=== PATIENT | male | born 1955 | race Caucasian/White ===

== ENCOUNTER 2019-11-01 10:55 | Inpatient (IN) | payer OTHER ==
--- NOTE | 2019-11-01 12:03 | CT ---
CT BRAIN WITHOUT CONTRAST: HISTORY: Syncope, weakness FINDINGS: No evidence of acute infarct, hemorrhage, midline shift or abnormal extra-axial fluid collections is seen. The ventricular size is appropriate and the basilar cisterns are patent. The bony calvarium is intact. The mastoid air cells are well aerated. There is mucosal disease in the paranasal sinuses. IMPRESSION: No CT evidence of acute intracranial process.
[2019-11-01 12:05] LABS: Hemoglobin 8.3 g/dL (14.0-18.0); Mean Corpuscular Hemoglobin 25.9 pg (27.0-31.0); Mean Corpuscular Volume 83.4 fL (78.0-98.0); RBC Distribution Width 19.5 % (11.5-14.5); Red Blood Cell (RBC) Count 3.21 mill/uL (4.70-6.10); White Blood Cell (WBC) Count 3.6 thou/uL (4.8-10.8)
[2019-11-01 12:24] LABS: ALT (SGPT) 16 U/L (8-55); AST (SGOT) 56 U/L (5-34); Albumin 2.1 g/dL (3.4-4.8); Alkaline Phosphatase 90 U/L (40-110); Anion Gap 11 mmol/L (10-20); BUN (Urea Nitrogen) 11 mg/dL (8.4-25.7); Bilirubin, Total 0.7 mg/dL (0.2-1.2); Calc. Creatinine Clearance 0 mL/min (70-130); Calcium 8.1 mg/dL (7.8-10.44); Carbon Dioxide 28 mmol/L (23-31); Chloride 96 mmol/L (98-107); Estimated GFR-MDRD Greater than 90; Globulin 3.2 g/dL (2.4-3.5); Glucose 97 mg/dL (80-115); Lipase 7 U/L (8-78); Magnesium 1.7 mg/dL (1.6-2.6); Potassium 3.9 mmol/L (3.5-5.1); Protein, Total 5.3 g/dL (5.8-8.1); Sodium 131 mmol/L (136-145)
[2019-11-01 12:30] LABS: Band 31 % (5-11); Hypochromia SLIGHT = 6-15 cells (100X) (0-5/hpf); Lymphocytes 3 % (21-51); MDiff Complete? YES; Mean Platelet Volume 6.4 fL (7.4-10.4); Monocytes 7 % (0-10); Neutrophil 53 % (42-75); Nucleated RBC 1 % (0); Ovalocytes SLIGHT = 2-5 cells (100X) (0-1/hpf); Platelet Count 62 thou/uL (130-400); Platelet Morphology Comment Appears Decreased; Polychromasia MODERATE = 3-4 cells (100X) (0-2/hpf); Reactive Lymphocytes 5 % (0-10); Tear Drops SLIGHT = 2-5 cells (100X) (0-1/hpf)
--- NOTE | 2019-11-01 12:34 | RAD ---
Chest one view HISTORY: Fall. Weakness. Syncope. FINDINGS: Cardiac silhouette is magnified by projection. Pulmonary vasculature slightly engorged. Pat reza bilateral perihilar and bibasilar infiltrates. Mediastinum is midline. No lobar consolidation or evidence of pneumothorax. Severe degenerative changes of the shoulders. IMPRESSION: Patchy bibasilar infiltrates favored to be related to borderline pulmonary edema.
[2019-11-01 13:24] LABS: Bilirubin Negative (Negative); Blood, Urine Negative (Negative); Clarity Clear (Clear); Glucose, Urine (Dipstick) Normal (Negative); Leukocyte Negative Leu/uL (Negative); Nitrite Negative (Negative); Protein, Urine (Dipstick) 30 mg/dL (Neg-Trace); Squamous Epithelial 0-3 HPF (0-3); Urobilinogen Greater than 12 mg/dL (Less than 2); WBC/HPF 0-3 HPF (0-3)
[2019-11-01 13:31] LABS: Bacteria/HPF None Seen HPF (None Seen); Calcium Oxalate Crystals 1+ HPF (None Seen); RBC/HPF None Seen HPF (0-3)
--- NOTE | 2019-11-01 15:35 | PDOC.FPRHP ---
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 He is followed by MD Luevano. His syncopal episodes were yesterday and this morning. Pt states the episodes began when he stood to a rise. He did not fall, hit his head but family had to lay him on the ground. He does not remember the incident but family states he remained conscious. He denies fever, chills. He endorsed increasing appetite over the previous 3 days, little water intake through the day to preserve his appetite for food. A few weeks ago he underwent radiation then immunomodulatory therapy for oropharyngeal cancer as well as at the two sites of metastatic cancer in the spine at [facility] [place] After this treatment he was hospitalized for 1 week due to decreased PO intake, dehydration and subsequent new onset Atrial Fibrillation , anemia requiring 2 transfusions. He regained strength with PT/OT by discharge. A-Fib was rate controlled on discharge and instructed to titrate off of amiodarone but remain on metoprolol. He was discharged on Oct 24, 2019. Pt preferred to stay in the area vs going back to [facility] as he is staying with family in the area. He currently is waiting to be accepted to [facility] for rehabilitation secondary to weakness, fatigue. His paperwork was sent to [place], Dr. Mcgregor by MD Luevano today. ED Course: In the ED pt was found to have a left shift with bandemia. ED spoke with MD Luevano Onc department who recommended admission with subsequent inpt rehab. - Allergies/Adverse Reactions Allergies Allergy/AdvReac Type Severity Reaction Status Date / Time No Known Drug Allergies Allergy Verified 11/01/19 18:32 - Home Medications Medication Instructions Recorded Confirmed Type Albuterol Sulfate HFA (OR) 90 mcg INH Q6HR PRN 11/01/19 11/01/19 History [Proventil Hfa (or)] Albuterol Sulfate [Albuterol 8.5 gm IH Q4H PRN 11/01/19 11/01/19 History Sulfate Hfa] Amiodarone HCl 200 mg PO DAILY 11/01/19 11/01/19 History Azelastine [Azelastine 137 mcg 1 spray EA NARE BID 11/01/19 11/01/19 History (0.1%) Nasal [place]] Budesonide-Formoterol [Symbicort 1 puff INH BID 11/01/19 11/01/19 History 160-4.5] Cholecalciferol (Vitamin D3) 1,000 unit PO DAILY 11/01/19 11/01/19 History [Vitamin D3] Metoprolol Tartrate 25 mg PO BID 11/01/19 11/01/19 History Metoprolol Tartrate 25 mg PO TID 11/01/19 11/01/19 History Multivit-Min/FA/Lycopen/Lutein 1 each PO DAILY 11/01/19 11/01/19 History [Centrum Silver Men Tablet] OLANZapine [Olanzapine] 2.5 mg PO HS PRN 11/01/19 11/01/19 History OLANZapine [ZyPREXA] 2.5 mg PO QPM 11/01/19 11/01/19 History Pantoprazole [Protonix] 40 mg PO DAILY 11/01/19 11/01/19 History Polyethylene Glycol 3350 [Miralax] 17 gm PO DAILY 11/01/19 11/01/19 History Sennosides [Senna] 8.6 mg PO DAILY 11/01/19 11/01/19 History Sennosides/Docusate Sodium 1 each PO BID 11/01/19 11/01/19 History [Senna-Docusate Sodium Tablet] Sodium Chloride 1 gm PO BID 11/01/19 11/01/19 History Sucralfate [Sucralfate Oral 1 gm PO Q2HR PRN 11/01/19 11/01/19 History Suspension] Testosterone [Androderm] 1 each TD HS 11/01/19 11/01/19 History Testosterone [Androderm] 4 mg SUBDERMAL HS 11/01/19 11/01/19 History Vitamin E Acetate [Vitamin E] 600 unit PO DAILY 11/01/19 11/01/19 History Zinc Sulfate 220 mg PO DAILY 11/01/19 11/01/19 History Zinc Sulfate [Orazinc] 220 mg PO DAILY 11/01/19 11/01/19 History oxyCODONE HCl [Oxycodone HCl] 5 mg PO Q4H PRN 11/01/19 11/01/19 History oxyCODONE HCl [Oxycodone HCl] 5 mg PO Q4HR PRN 11/01/19 11/01/19 History valACYclovir [ValTRex] 500 mg PO DAILY 11/01/19 11/01/19 History valACYclovir [ValTRex] 500 mg PO DAILY 11/01/19 11/01/19 History - History PMHx: Oropharyngeal Squamous Cell Carcinoma with mets to spine, Anemia PSHx: Rotator Cuff, Tailbone FHx: non-contributory Social: Lives with family in area - Review of Systems General: reports: weight/appetite/sleep changes. denies: fever/chills Eyes: denies: eye pain, vision changes ENT: denies: nasal congestion, rhinorrhea Respiratory: reports: cough. denies: congestion, shortness of breath Cardiovascular: denies: chest pain, palpitation, edema Gastrointestinal: denies: nausea, vomiting, diarrhea, constipation Genitourinary: denies: incontinence, dysuria Skin: denies: rashes, lesions Musculoskeletal: denies: pain, tenderness Neurological: reports: numbness (hands and feet after radiation), weakness. denies: syncope Psychological: denies: anxiety, depression - Vital signs BP: [126/73] HR: [85] RR: [20] Tmax: [99.1] Pox: [94]% on [RA] Wt: [88 kg] - Physical Exam Constitutional: NAD, awake, alert and oriented HEENT: PERRLA, EOMI Neck: FROM, trachea midline Heart: RRR, normal S1/S2 Lungs: CTAB, no respiratory distress, good air movement Abdomen: soft, non-tender, bowel sounds present Neurological: no focal deficit, CN II-XII intact Skin: no rash/lesions, capillary refill <2 seconds Heme/Lymphatic: no purpura, no petechia Psychiatric: normal mood and affect, good judgment and insight FMR H&P: Results - Labs Result Diagrams: 11/02/19 04:35 11/02/19 04:35 Lab results: WBC 3.6 thou/uL (4.8-10.8) L 11/01/19 11:49 Hgb 8.3 g/dL (14.0-18.0) L 11/01/19 11:49 Hct 26.8 % (42.0-52.0) L 11/01/19 11:49 MCV 83.4 fL (78.0-98.0) 11/01/19 11:49 Plt Count 62 thou/uL (130-400) L 11/01/19 11:49 Band Neuts % (Manual) 31 % (5-11) H 11/01/19 11:49 Sodium 131 mmol/L (136-145) L 11/01/19 11:49 Potassium 3.9 mmol/L (3.5-5.1) 11/01/19 11:49 Chloride 96 mmol/L (98-107) L 11/01/19 11:49 Carbon Dioxide 28 mmol/L (23-31) 11/01/19 11:49 BUN 11 mg/dL (8.4-25.7) 11/01/19 11:49 Creatinine 0.76 mg/dL (0.7-1.3) 11/01/19 11:49 Glucose 97 mg/dL (80-115) 11/01/19 11:49 Calcium 8.1 mg/dL (7.8-10.44) 11/01/19 11:49 Total Bilirubin 0.7 mg/dL (0.2-1.2) 11/01/19 11:49 AST 56 U/L (5-34) H 11/01/19 11:49 ALT 16 U/L (8-55) 11/01/19 11:49 Alkaline Phosphatase 90 U/L (40-110) 11/01/19 11:49 Serum Total Protein 5.3 g/dL (5.8-8.1) L 11/01/19 11:49 Albumin 2.1 g/dL (3.4-4.8) L 11/01/19 11:49 Lipase 7 U/L (8-78) L 11/01/19 11:49 Urine Ketones Negative mg/dL (Negative) 11/01/19 12:50 Urine Blood Negative (Negative) 11/01/19 12:50 Urine Nitrite Negative (Negative) 11/01/19 12:50 Ur Leukocyte Esterase Negative Eder/uL (Negative) 11/01/19 12:50 Urine RBC None Seen HPF (0-3) 11/01/19 12:50 Urine WBC 0-3 HPF (0-3) 11/01/19 12:50 Ur Squamous Epith Cells 0-3 HPF (0-3) 11/01/19 12:50 Urine Bacteria None Seen HPF (None Seen) 11/01/19 12:50 - Radiology Interpretation Chest x-ray Status: report reviewed by me (Patchy bibasilar infiltrates.) CT scan - head Status: report reviewed by me (No acute intracranial process) FMR H&P: A/P - Problem List (1) Physical deconditioning Current Visit: Yes Status: Acute Code(s): R53.81 - OTHER MALAISE (2) Squamous cell carcinoma of larynx Current Visit: Yes Status: Acute Code(s): C32.9 - MALIGNANT NEOPLASM OF LARYNX, UNSPECIFIED (3) Bone metastasis Current Visit: Yes Status: Acute Code(s): C79.51 - SECONDARY MALIGNANT NEOPLASM OF BONE (4) Anemia Current Visit: Yes Status: Acute Code(s): D64.9 - ANEMIA, UNSPECIFIED (5) Thrombocytopenia Current Visit: Yes Status: Acute Code(s): D69.6 - THROMBOCYTOPENIA, UNSPECIFIED (6) Paroxysmal atrial fibrillation Current Visit: Yes Status: Acute Code(s): I48.0 - PAROXYSMAL ATRIAL FIBRILLATION - Plan Mr. Joseph is a 64 yo male with PMH significant for squamous cell carcinoma of the larynx with bone mets, anemia, thrombocytopenia who presents with 2 syncopal episodes. # Syncope Pt had 2 syncopal episodes when standing to a rise. He states he does not remember the events, family helped him to the ground. No seizure activity. He is deconditioned, dehydrated, and has decreased PO intake since his radiation, immunomodulatory therapy a few ago. He required 1 week hospitalization at [facility] for dehydration. He did have atrial fib during that hospitalization for which he is currently being titrated off of amiodarone but continuing metoprolol. In the ED he was in NSR. - orthostatic blood pressure - start LR 75 mls/hr - review echo from MD Luevano - family has results - BNP WNL # Squamous Cell Carcinoma of Larynx with mets to spine # De-conditioning # Dehydration # Fatigue - PT/OT - CM consulted; pt is waiting for placement at [facility]. MD Luevano provided records to [facility]. - Computer Systems Security Analyst consulted - start fluids as above - continue home pain meds # Bandemia - Blood cx, urine cx pending - Procalcitonin pending # Paroxysmal A-Fib - continue metoprolol, amiodarone - Tele for monitoring # Cough - contine albuterol. He states he has increased secretions after radiation # Insomina - continue olanzapine # Constipation - continue senna. He has a BM daily. 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 Family reports he has poor PO intake. Recently he was admitted at outside hospital for similar sx, found to have severe dehydration with electrolyte abnormalities. Family reports he requires total care for ADL's. Family denies any confusion. He denies CP, palpitations, fever, SOB. Reports stable cough. VS normal with the exception of 91% RA on admission, currently 94% RA. Pt PE notable for bibasilar crackles, and generalized weakness. WBC 3.6; H/H 8.3/26.8; Plt 62. 31 bands. CXR with patchy bibasilar infiltrates c/w pulmonary edema. Plan will be to place in telemetry for observation. Likely presyncopal events related to hydration status, but will monitor for Afib events. Family reports they are currently titrating off Amiodarone. Will continue current dose for now. Significant bandemia without any signs of infection. Will get blood and urine cx as well as procal. Encourage PO hydration and give gentle fluids with possible pulmonary edema. Will start discharge planning with CM consult for rehab placement. See above H&P for full hx and details. - Plan Date/Time: 11/01/19 4089 I, [], have evaluated this patient and agree with findings/plan as outlined by validation intern resident. Pertinent changes/additions are listed here. Addendum - Attending - Attending Attestation Date/Time: 11/02/19 [id number] I personally evaluated the patient and discussed the management with the day of admission. I agree with the History, Examination, Assessment and Plan documented above with any addition or exceptions noted below.
[2019-11-01] MEDS ORDERED: Acetaminophen 325 MG TAB PO PRN (18:30)
[2019-11-01] MEDS ORDERED: Ondansetron ODT 4 MG TAB PO PRN (18:30)
[2019-11-01] MEDS ORDERED: PROVENTIL INHALER 6.7 G (200 INHALATIONS) INH PRN (19:07)
[2019-11-01] MEDS: Lactated Ringer's 1,000 ML IV SCH (19:26)
[2019-11-01] MEDS: Metoprolol Tartrate 25 MG TAB PO SCH (21:41)
[2019-11-01] MEDS: OLANZapine 2.5 MG TAB PO SCH (21:41)
[2019-11-02] MEDS: oxyCODONE 5 MG TAB PO PRN ×3 (01:49→16:18)
[2019-11-02 05:14] LABS: Band 14 % (5-11); Hemoglobin 7.9 g/dL (14.0-18.0); Lymphocytes 14 % (21-51); MDiff Complete? YES; Mean Corpuscular HGB CONC 30.7 g/dL (32.0-36.0); Mean Corpuscular Hemoglobin 25.4 pg (27.0-31.0); Mean Corpuscular Volume 82.8 fL (78.0-98.0); Monocytes 4 % (0-10); Neutrophil 68 % (42-75); Platelet Count 90 thou/uL (130-400); Platelet Morphology Comment Appears Decreased; RBC Distribution Width 19.5 % (11.5-14.5); Red Blood Cell (RBC) Count 3.09 mill/uL (4.70-6.10); White Blood Cell (WBC) Count 3.3 thou/uL (4.8-10.8)
[2019-11-02 05:16] LABS: Anion Gap 9 mmol/L (10-20); BUN (Urea Nitrogen) 11 mg/dL (8.4-25.7); Calc. Creatinine Clearance 0 mL/min (70-130); Calcium 8.4 mg/dL (7.8-10.44); Carbon Dioxide 32 mmol/L (23-31); Chloride 95 mmol/L (98-107); Estimated GFR-MDRD Greater than 90; Glucose 83 mg/dL (80-115); Potassium 3.5 mmol/L (3.5-5.1); Sodium 132 mmol/L (136-145)
--- NOTE | 2019-11-02 06:38 | PDOC.FM ---
- Subjective Subjective: Doing well this morning. States his appetite has drastically decreased. - Objective MAR Reviewed: Yes Vital Signs & Weight: Vital Signs (12 hours) Temp Pulse Resp BP BP Pulse Ox 11/02/19 03:19 97.9 F 83 18 114/65 94 L 11/02/19 00:00 97.3 F L 79 17 110/60 93 L 11/01/19 19:40 98.4 F 84 18 148/74 H 93 L 11/01/19 19:30 98.8 F 84 18 148/74 H 94 L Weight Weight 90.265 kg I&O: 10/31/19 11/01/19 11/02/19 06:59 06:59 06:59 Output Total 100 Balance -100 Result Diagrams: 11/02/19 04:35 11/02/19 04:35 Phys Exam - Physical Examination Constitutional: NAD HEENT: moist MMs, sclera anicteric Neck: no JVD, supple Respiratory: no wheezing, no rales, no rhonchi, clear to auscultation bilateral Cardiovascular: RRR (in sinus rhythm), no significant murmur, no rub Gastrointestinal: soft, non-tender, no distention Musculoskeletal: no edema, pulses present Neurological: non-focal, moves all 4 limbs Psychiatric: normal affect, A&O x 3 Skin: normal turgor Deviation from normal: radiation lyons Dx/Plan (1) Anemia Code(s): D64.9 - ANEMIA, UNSPECIFIED Status: Acute (2) Bone metastasis Code(s): C79.51 - SECONDARY MALIGNANT NEOPLASM OF BONE Status: Acute (3) Paroxysmal atrial fibrillation Code(s): I48.0 - PAROXYSMAL ATRIAL FIBRILLATION Status: Acute (4) Physical deconditioning Code(s): R53.81 - OTHER MALAISE Status: Acute (5) Squamous cell carcinoma of larynx Code(s): C32.9 - MALIGNANT NEOPLASM OF LARYNX, UNSPECIFIED Status: Acute (6) Thrombocytopenia Code(s): D69.6 - THROMBOCYTOPENIA, UNSPECIFIED Status: Acute - Plan Plan: Mr. Joseph is a 64 yo male with PMH significant for squamous cell carcinoma of the larynx with bone mets, anemia, thrombocytopenia who presents with 2 syncopal episodes. Syncope, likely 2/2 fatigue and dehydration - orthostatic blood pressures - LR 75 mls/hr - review echo from MD Luevano - family has results - BNP WNL - CT Head - no acute processes. Squamous Cell Carcinoma of Larynx with mets to spine with subsequent deconditioning - PT/OT - CM consulted; pt is waiting for placement at [facility]. MD Luevano provided records to [facility]. - Autopsy Pathologist consulted, will initiate nutrition supplementation. - start fluids as above - continue home pain meds Bandemia - Blood cx, urine cx pending - Procalcitonin negative - urine gram stain showed no organisms. Paroxysmal A-Fib - continue metoprolol, amiodarone - Tele for monitoring Cough - contine albuterol. He states he has increased secretions after radiation Insomina - continue olanzapine Constipation - continue senna. He has a BM daily. Anemia, Thrombocytopenia - monitor, likely secondary to malignancy treatment - will order iron studies to rule out iron deficiency as a contributor. Fluids: LR 75 mls/hr Diet: no restrictions, dietary consulted VTE: held chemical prophylaxis for thrombocytopenia, SCD's Dispo: Admit to obs Addendum - Attending - Attending Attestation Date/Time: 11/02/19 3798 I personally evaluated the patient and discussed the management with Dr. Alonso. I agree with the History, Examination, Assessment and Plan documented above with any addition or exceptions noted below.
[2019-11-02] MEDS ORDERED: Sucralfate 1 GM/10 ML UDCUP PO PRN (08:03)
[2019-11-02] MEDS ORDERED: Azelastine 137 MCG/Spray 30 ML NS SCH (09:00)
[2019-11-02] MEDS ORDERED: Non-Formulary Item 1 EACH (Budesonide-Formoterol [Symbicort 160-4.5] 1 PUFF) INH SCH (09:00)
[2019-11-02] MEDS ORDERED: Prevnar 13-Val Conj/PF 0.5 ML SYRINGE IM ONE (09:00)
[2019-11-02] MEDS ORDERED: Senokot S 8.6-50 MG TAB PO SCH (09:00)
[2019-11-02] MEDS: Zinc Sulfate 220 MG CAP PO SCH (09:14)
[2019-11-02] MEDS: valACYclovir 500 MG TAB PO SCH (09:14)
[2019-11-02] MEDS: Metoprolol Tartrate 25 MG TAB PO SCH ×2 (09:15→20:34)
[2019-11-02] MEDS: Amiodarone 200 MG TAB PO SCH (09:15)
[2019-11-02] MEDS: Senokot S 8.6-50 MG TAB PO SCH ×2 (09:16→20:34)
[2019-11-02] MEDS: Azelastine 137 MCG/Spray 30 ML NS SCH ×2 (09:18→20:35)
[2019-11-02] MEDS: Senokot 8.6 MG TAB PO SCH (09:19)
[2019-11-02] MEDS: Lactated Ringer's 1,000 ML IV SCH (09:20)
[2019-11-02 11:16] LABS: Iron 13 ug/dL (65-175); Iron Binding Capacity, Total 88 mcg/dL (261-462)
[2019-11-02 11:34] VITALS: BMI 25.5
[2019-11-02] MEDS ORDERED: Ibuprofen 200 MG TAB PO PRN (13:58)
[2019-11-02] MEDS ORDERED: Iron Sucrose Complex 200 MG in Sodium Chloride 0.9% 250 ML 250 ML IVPB SCH (15:00)
--- NOTE | 2019-11-02 15:19 | PDOC.PALCO ---
Palliative Care Consult - Consult Details Requesting Physician: Dr Alonso Reason for Consult: goals of care, assistance with communication prognosis/ disease Family Members Present: Daughter Johanna - Pertinent HPI 64 year old male who had recent syncopal episode at home and was transported to [facility] for evaluation. Diagnosed 15 months ago with squamous cell carcinoma of the larynx with metastasis to spine and lymphnodes. Mr Joseph is followed by MD Luevano, recent radiation for palliation. Falls at home with increase in fatigue. - Pertinent PMH Oropharyngeal Squamous Cell Carcinoma, Anemia - Social History Smoking Status: Unknown if ever smoked Living Situation: with family/parents - Medications MAR Reviewed: Yes - Allergies Allergies/Adverse Reactions: Allergies Allergy/AdvReac Type Severity Reaction Status Date / Time No Known Drug Allergies Allergy Verified 11/01/19 18:32 - Subjective Awake, alert. Daughter at bedside. Weakness. - ROS Constitutional: alert, weakness Eyes: other (Negative for blurry vision, drainage) Respiratory: other (Negative for cough, congestion) Cardiology: other (negative for chest pain) Neurological: numbness (feet bilaterally) - Objective Vital Signs: Vital Signs - Most Recent Temp Pulse Resp BP Pulse Ox 99.9 F H 88 16 119/67 93 L 11/02/19 11:57 11/02/19 11:57 11/02/19 11:57 11/02/19 11:57 11/02/19 07:43 Palliative Performance Scale: 50 - Physical Exam Constitutional: NAD HEENT: EOMI, moist MMs Respiratory: unlabored breathing Gastrointestinal: continent Genitourinary: continent Musculoskeletal: no cyanosis Skin: cap refill <2 seconds Psychiatric: A&O x 3 - Problem List (1) Palliative care encounter Code(s): Z51.5 - ENCOUNTER FOR PALLIATIVE CARE Current Visit: Yes Status: Acute (2) Bone metastasis Code(s): C79.51 - SECONDARY MALIGNANT NEOPLASM OF BONE Current Visit: Yes Status: Acute (3) Physical deconditioning Code(s): R53.81 - OTHER MALAISE Current Visit: Yes Status: Acute - Plan/Recommendations Plan: Discussed Goal of Care 1) Rehab to regain strength to walk 2) Increase appetite 3) Go home and 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 [60] minutes spent on this encounter with >50% of the time in counseling and coordination of care. Thank you for this very appropriate consult.
[2019-11-02] MEDS ORDERED: Metoprolol Tartrate 25 MG TAB PO SCH (17:15)
[2019-11-02] MEDS: Dronabinol 2.5 MG CAP PO SCH (18:06)
[2019-11-02] MEDS: Mometasone/Formoterol 120 PUFF INHALER INH SCH (18:23)
[2019-11-02] MEDS: TESTOSTERONE TD SCH (20:34)
[2019-11-02] MEDS: OLANZapine 2.5 MG TAB PO SCH (20:34)
[2019-11-02] MEDS ORDERED: TESTOSTERONE TD SCH (21:00)
[2019-11-03] MEDS: oxyCODONE 5 MG TAB PO PRN ×2 (00:53→06:45)
[2019-11-03] MEDS: Lactated Ringer's 1,000 ML IV SCH (03:25)
--- NOTE | 2019-11-03 05:35 | PDOC.FM ---
- Subjective Subjective: Doing well this morning. States addition of Marinol has helped with appetite stimulation. Tolerating PO well without any n/v. Denies any CP, fever/chills, SOB, diarrhea/constipation. He is very eager for discharge to inpatient rehab for continued strengthening. - Objective MAR Reviewed: Yes Vital Signs & Weight: Vital Signs (12 hours) Temp Pulse Resp BP BP Pulse Ox 11/03/19 03:30 98.4 F 93 18 126/63 93 L 11/02/19 20:00 99.3 F 97 20 134/78 95 11/02/19 18:23 66 16 95 Weight Admit Weight 90.265 kg Weight 90.265 kg I&O: 11/01/19 11/02/19 11/03/19 06:59 06:59 06:59 Intake Total 1050 1170 Output Total 800 800 Balance 250 370 Result Diagrams: 11/03/19 11:07 11/03/19 11:07 EKG Reviewed by me: Yes (Tele: NSR) Phys Exam - Physical Examination Constitutional: NAD HEENT: moist MMs Neck: supple radiation skin changes to neck Respiratory: no wheezing, no rales, no rhonchi, clear to auscultation bilateral Cardiovascular: RRR, no significant murmur, no rub Gastrointestinal: soft, non-tender, no distention, positive bowel sounds Musculoskeletal: no edema, pulses present Neurological: non-focal Psychiatric: normal affect, A&O x 3 Dx/Plan (1) Physical deconditioning Code(s): R53.81 - OTHER MALAISE Status: Acute (2) Squamous cell carcinoma of larynx Code(s): C32.9 - MALIGNANT NEOPLASM OF LARYNX, UNSPECIFIED Status: Chronic (3) Pancytopenia Code(s): D61.818 - OTHER PANCYTOPENIA Status: Chronic (4) Bone metastasis Code(s): C79.51 - SECONDARY MALIGNANT NEOPLASM OF BONE Status: Chronic - Plan Plan: Mr. Joseph is a 64 yo CM with PMH significant for squamous cell carcinoma of the larynx with bone mets, anemia, thrombocytopenia who presents with 2 syncopal episodes. #Syncope, likely 2/2 fatigue/dehydration from metastatic cancer - sxs improved with IVF - Addition of Marinol has increase appetite, tolerating PO well, will d/c IVF this AM - Lytes stable - CT Head- no acute process - no return of sxs #Squamous Cell Carcinoma of Larynx with mets to spine with subsequent deconditioning - poor nutrition 2/2 decreased appetite - Marinol for nausea and appetite, with improvement of sxs - PT/OT - Would benefit from inpt rehab for continued PT/OT and strengthening prior to discharge home, pt is agreeable to plan and eager for rehab - CM/rehab consulted, apprec rec - Boiler Control Room Operator consulted, apprec recs - Tx at [facility] - cont home pain medications #Bandemia - Blood cx, urine cx NGTD - Procalcitonin negative - Likely 2/2 malignancy #Paroxysmal A-Fib - continue metoprolol, amiodarone - Tele for monitoring #Chronic Cough 2/2 radiation - contine albuterol prn. #Insomina - continue olanzapine #Constipation - continue senna, daily BM #Pancytopenia - monitor, likely secondary to malignancy and tx - iron studies unequivocal 2/2 elevated ferritin due to acute phase reactant Fluids: SL Diet: no restrictions, dietary consulted VTE: Lovenox- high risk with active cancer, will monitor Hb and Plt Code: Chem- Intubation Dispo: Admitted to tele obs for syncope, weakness, deconditioning all likely 2/ 2 to malignancy. Sxs now stable and improved. Pending inpt rehab placement. Addendum - Attending - Attending Attestation Date/Time: 11/03/19 2376 I personally evaluated the patient and discussed the management with Dr. Lerner I agree with the History, Examination, Assessment and Plan documented above with any addition or exceptions noted below.
[2019-11-03] MEDS: Mometasone/Formoterol 120 PUFF INHALER INH SCH ×2 (07:03→19:16)
[2019-11-03] MEDS: Dronabinol 2.5 MG CAP PO SCH (07:19)
[2019-11-03] MEDS: Senokot 8.6 MG TAB PO SCH (09:47)
[2019-11-03] MEDS: Metoprolol Tartrate 25 MG TAB PO SCH ×3 (09:47→20:24)
[2019-11-03] MEDS: Zinc Sulfate 220 MG CAP PO SCH (09:47)
[2019-11-03] MEDS: Amiodarone 200 MG TAB PO SCH (09:47)
[2019-11-03] MEDS: Senokot S 8.6-50 MG TAB PO SCH ×2 (09:48→20:27)
[2019-11-03] MEDS: valACYclovir 500 MG TAB PO SCH (09:51)
[2019-11-03] MEDS: Azelastine 137 MCG/Spray 30 ML NS SCH (09:51)
[2019-11-03] MEDS ORDERED: Enoxaparin Sodium 40 MG/0.4 ML SYRINGE SC SCH (11:00)
[2019-11-03 11:36] LABS: #Lymphocytes 0.3 thou/uL (1.20-3.40); #Monocytes 0.3 thou/uL (0.11-0.59); #Neutrophils 2.6 thou/uL (1.40-6.50); %Basophils 0.3 % (0.0-1.0); %Eosinophils 0.3 % (0.0-10.0); %Lymphocytes 9.9 % (21.0-51.0); %Monocytes 9.6 % (0.0-10.0); Hemoglobin 7.7 g/dL (14.0-18.0); Mean Corpuscular Hemoglobin 26.4 pg (27.0-31.0); Mean Corpuscular Volume 82.5 fL (78.0-98.0); Mean Platelet Volume 9.8 fL (7.4-10.4); Platelet Count 96 thou/uL (130-400); RBC Distribution Width 19.6 % (11.5-14.5); Red Blood Cell (RBC) Count 2.93 mill/uL (4.70-6.10); White Blood Cell (WBC) Count 3.3 thou/uL (4.8-10.8)
[2019-11-03 11:52] LABS: Anion Gap 11 mmol/L (10-20); BUN (Urea Nitrogen) 10 mg/dL (8.4-25.7); Calc. Creatinine Clearance 130 mL/min (70-130); Calcium 8.2 mg/dL (7.8-10.44); Carbon Dioxide 30 mmol/L (23-31); Chloride 94 mmol/L (98-107); Estimated GFR-MDRD Greater than 90; Glucose 92 mg/dL (80-115); Potassium 3.8 mmol/L (3.5-5.1); Sodium 131 mmol/L (136-145)
[2019-11-03] MEDS ORDERED: valACYclovir 500 MG TAB PO PRN (16:05)
[2019-11-03] MEDS: OLANZapine 2.5 MG TAB PO SCH (20:24)
[2019-11-03] MEDS: TESTOSTERONE TD SCH (20:24)
[2019-11-03] MEDS ORDERED: Dronabinol 2.5 MG CAP PO SCH (21:00)
[2019-11-04] MEDS: oxyCODONE 5 MG TAB PO PRN (03:02)
--- NOTE | 2019-11-04 05:25 | PDOC.FM ---
- Subjective Subjective: Pt did well overnight, no acute events. Sleeping comfortably. Nurse did noticed O2 drop to low-90s on RA and thus was placed on 2L NC. Tolerating PO well. Eager for placement at rehab. - Objective MAR Reviewed: Yes Vital Signs & Weight: Vital Signs (12 hours) Temp Pulse Resp BP Pulse Ox 11/04/19 03:50 98.1 F 87 18 112/60 92 L 11/03/19 19:18 98.2 F 87 18 101/59 L 92 L 11/03/19 19:16 16 96 Weight Admit Weight 90.265 kg Weight 90.265 kg I&O: 11/02/19 11/03/19 11/04/19 06:59 06:59 06:59 Intake Total 1050 1770 1445 Output Total 800 1600 1600 Balance 250 170 -155 Result Diagrams: 11/03/19 11:07 11/03/19 11:07 Phys Exam - Physical Examination Constitutional: NAD (resting comfortably) HEENT: moist MMs Neck: no JVD, supple Respiratory: no wheezing, no rales, no rhonchi, clear to auscultation bilateral Cardiovascular: RRR, no significant murmur, no rub Gastrointestinal: soft, non-tender, no distention, positive bowel sounds Musculoskeletal: no edema Neurological: non-focal Dx/Plan (1) Physical deconditioning Code(s): R53.81 - OTHER MALAISE Status: Acute (2) Squamous cell carcinoma of larynx Code(s): C32.9 - MALIGNANT NEOPLASM OF LARYNX, UNSPECIFIED Status: Chronic (3) Pancytopenia Code(s): D61.818 - OTHER PANCYTOPENIA Status: Chronic (4) Bone metastasis Code(s): C79.51 - SECONDARY MALIGNANT NEOPLASM OF BONE Status: Chronic - Plan Plan: Mr. 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 #Syncope, likely 2/2 fatigue/dehydration from metastatic cancer, resolved - sxs resolved with IVF, now tolerating PO well with addition of Marinol, SL IV - Lytes stable - CT Head- no acute process #Squamous Cell Carcinoma of Larynx with mets to spine with subsequent deconditioning - poor nutrition 2/2 decreased appetite - Marinol for nausea and appetite, with improvement of sxs - PT/OT - Would benefit from inpt rehab for continued PT/OT and strengthening prior to discharge home, pt is agreeable to plan and eager for rehab - CM/rehab consulted, apprec rec - Engine Repairer consulted, apprec recs - Tx at [facility] - cont home pain medications #Bandemia - Blood cx, urine cx NGTD - Procalcitonin negative - Likely 2/2 malignancy #Paroxysmal A-Fib - continue metoprolol, amiodarone - Tele for monitoring, no acute events - [id number] - 1 #Chronic Cough 2/2 radiation - contine albuterol prn. #Insomina - continue olanzapine #Constipation - continue senna, daily BM #Pancytopenia - monitor, likely secondary to malignancy and tx - iron studies unequivocal 2/2 elevated ferritin due to acute phase reactant Fluids: SL Diet: no restrictions VTE: Lovenox- high risk with active cancer, will monitor Hb and Plt Code: Chem- Intubation Dispo: Admitted to tele for syncope, weakness, deconditioning all likely 2/2 to underlying malignancy. Sxs now stable and improved. Pending inpt rehab placement. Addendum - Attending - Attending Attestation Date/Time: 11/04/19 [id number] I personally evaluated the patient and discussed the management with Dr. Childs I agree with the History, Examination, Assessment and Plan documented above with any addition or exceptions noted below.
[2019-11-04] MEDS: Mometasone/Formoterol 120 PUFF INHALER INH SCH ×2 (07:15→19:49)
[2019-11-04] MEDS: Enoxaparin Sodium 40 MG/0.4 ML SYRINGE SC SCH (08:39)
[2019-11-04] MEDS: Amiodarone 200 MG TAB PO SCH (08:39)
[2019-11-04] MEDS: Senokot 8.6 MG TAB PO SCH (08:39)
[2019-11-04] MEDS: Dronabinol 2.5 MG CAP PO SCH ×2 (08:39→11:30)
[2019-11-04] MEDS: Senokot S 8.6-50 MG TAB PO SCH ×2 (08:39→20:32)
[2019-11-04] MEDS: Zinc Sulfate 220 MG CAP PO SCH (08:40)
[2019-11-04] MEDS: Metoprolol Tartrate 25 MG TAB PO SCH ×3 (08:40→20:32)
[2019-11-04] MEDS: Dronabinol 2.5 MG CAP PO PRN (17:18)
[2019-11-04] MEDS ORDERED: Sodium Chloride 1 GM TAB PO SCH (17:45)
[2019-11-04] MEDS: Midodrine HCl 5 MG TAB PO SCH (20:32)
[2019-11-04] MEDS: Sodium Chloride 1 GM TAB PO SCH (20:32)
[2019-11-04] MEDS: TESTOSTERONE TD SCH (20:32)
[2019-11-04] MEDS: OLANZapine 2.5 MG TAB PO SCH (20:32)
[2019-11-05 05:17] LABS: Hemoglobin 7.5 g/dL (14.0-18.0); Platelet Count 105 thou/uL (130-400)
[2019-11-05] MEDS: oxyCODONE 5 MG TAB PO PRN ×2 (05:27→18:29)
--- NOTE | 2019-11-05 05:37 | PDOC.FM ---
- Subjective Subjective: Giovanny is doing well this morning. He was feeling weak yesterday during PT, but is eager to continue working toward his goals. - Objective MAR Reviewed: Yes Vital Signs & Weight: Vital Signs (12 hours) Temp Pulse Resp BP Pulse Ox 11/05/19 04:00 99 F 83 16 131/72 90 L 11/04/19 19:49 77 18 95 11/04/19 19:18 98.3 F 87 20 134/70 94 L Weight Admit Weight 90.265 kg Weight 90.265 kg I&O: 11/03/19 11/04/19 11/05/19 06:59 06:59 06:59 Intake Total 1770 1445 720 Output Total 1600 1600 980 Balance 170 -155 -260 Result Diagrams: 11/05/19 03:34 11/05/19 05:49 Phys Exam - Physical Examination Constitutional: NAD HEENT: moist MMs, sclera anicteric Neck: supple, full ROM Respiratory: no wheezing, no rales, no rhonchi, clear to auscultation bilateral Cardiovascular: RRR, no significant murmur, no rub Gastrointestinal: soft, non-tender, no distention, positive bowel sounds Musculoskeletal: no edema, pulses present Neurological: non-focal, normal sensation Psychiatric: normal affect, A&O x 3 Skin: no rash, normal turgor Dx/Plan (1) Anemia Code(s): D64.9 - ANEMIA, UNSPECIFIED Status: Acute (2) Bone metastasis Code(s): C79.51 - SECONDARY MALIGNANT NEOPLASM OF BONE Status: Chronic (3) Paroxysmal atrial fibrillation Code(s): I48.0 - PAROXYSMAL ATRIAL FIBRILLATION Status: Acute (4) Physical deconditioning Code(s): R53.81 - OTHER MALAISE Status: Acute (5) Squamous cell carcinoma of larynx Code(s): C32.9 - MALIGNANT NEOPLASM OF LARYNX, UNSPECIFIED Status: Chronic (6) Thrombocytopenia Code(s): D69.6 - THROMBOCYTOPENIA, UNSPECIFIED Status: Acute - Plan Plan: Mr. 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 Syncope, likely 2/2 fatigue/dehydration from metastatic cancer, resolved - resolved after IV fluids. - patient reports decreased po intake prior to admission, added Marinol for appetite stimulation. Squamous Cell Carcinoma of Larynx, metastatic - PT/OT - Would benefit from inpt rehab for continued PT/OT and strengthening prior to discharge home, pt is agreeable to plan and eager for rehab - CM/rehab screen, palliative, load out worker consulted. - Undergoing treatment at [facility] - continue home pain medications Pancytopenia - monitor, likely secondary to malignancy and tx - iron studies unequivocal 2/2 elevated ferritin due to acute phase reactant - Hb 7.5 this morning, steadily downtrending. No active bleeding. - will type and cross 1 unit of PRBC this morning for transfusing Bandemia - Blood cx, urine cx NGTD - Procalcitonin negative - Likely 2/2 malignancy Paroxysmal A-Fib - continue metoprolol, amiodarone - Tele for monitoring, no acute events - [id number] - 1 Chronic Cough 2/2 radiation - contine albuterol prn. Insomina - continue olanzapine Constipation - continue senna, daily BM Fluids: SL Diet: no restrictions VTE: Lovenox- high risk with active cancer, will monitor Hb and Plt Code: Chem - Intubation only Dispo: Stable, inpatient. Awaiting placement.
[2019-11-05 06:19] LABS: Anion Gap 10 mmol/L (10-20); BUN (Urea Nitrogen) 9 mg/dL (8.4-25.7); Calc. Creatinine Clearance 129 mL/min (70-130); Calcium 8.5 mg/dL (7.8-10.44); Carbon Dioxide 31 mmol/L (23-31); Chloride 95 mmol/L (98-107); Estimated GFR-MDRD Greater than 90; Glucose 91 mg/dL (80-115); Potassium 3.5 mmol/L (3.5-5.1); Sodium 132 mmol/L (136-145)
[2019-11-05] MEDS: Mometasone/Formoterol 120 PUFF INHALER INH SCH ×2 (06:57→19:59)
[2019-11-05] MEDS: Senokot S 8.6-50 MG TAB PO SCH ×2 (10:09→22:39)
[2019-11-05] MEDS: Senokot 8.6 MG TAB PO SCH (10:14)
[2019-11-05] MEDS: Amiodarone 200 MG TAB PO SCH (10:14)
[2019-11-05] MEDS: Zinc Sulfate 220 MG CAP PO SCH (10:14)
[2019-11-05] MEDS: Metoprolol Tartrate 25 MG TAB PO SCH ×3 (10:14→21:55)
[2019-11-05] MEDS: Midodrine HCl 5 MG TAB PO SCH ×2 (10:14→21:55)
[2019-11-05] MEDS: Sodium Chloride 1 GM TAB PO SCH ×2 (10:14→21:55)
[2019-11-05] MEDS: Enoxaparin Sodium 40 MG/0.4 ML SYRINGE SC SCH (10:15)
[2019-11-05] MEDS: Dronabinol 2.5 MG CAP PO PRN (11:50)
--- NOTE | 2019-11-05 14:56 | PRG ---
DATE OF SERVICE: 11/05/2019 ADDENDUM: I have discussed the case with Dr. Meli Alonso, and I agree with her assessment and plan. Please add my note as an addendum to her note today. Mr. Joseph is a 64-year-old man who has history of significant squamous cell carcinoma of the larynx with metastases to the spine, lymph nodes, first diagnosed 15 months ago and followed at [facility]. We are currently awaiting him to be accepted to [facility] for rehabilitation. Job ID: [id number]
[2019-11-05] MEDS: OLANZapine 2.5 MG TAB PO SCH (21:55)
[2019-11-05] MEDS: TESTOSTERONE TD SCH (21:55)
--- NOTE | 2019-11-06 05:56 | PDOC.FM ---
- Subjective Subjective: Mr. Joseph is doing well this morning. He is tearful and upset about his perceived lack of progress. He thinks he should be stronger and up and walking already. We discussed some more realistic expectation for progression of PT. - Objective MAR Reviewed: Yes Vital Signs & Weight: Vital Signs (12 hours) Temp Pulse Resp BP BP Pulse Ox 11/06/19 03:56 99.6 F 79 14 116/60 92 L 11/05/19 23:45 97.8 F 76 16 131/70 87 L 11/05/19 20:00 100.1 F H 82 18 108/57 L 92 L 11/05/19 19:59 82 16 93 L Weight Admit Weight 90.265 kg Weight 90.265 kg I&O: 11/04/19 11/05/19 11/06/19 06:59 06:59 06:59 Intake Total 1445 1320 1190 Output Total 1600 1980 Balance -155 -660 1190 Result Diagrams: 11/06/19 06:25 11/05/19 05:49 Phys Exam - Physical Examination Constitutional: NAD HEENT: PERRLA, moist MMs, sclera anicteric Neck: no JVD, supple Respiratory: no wheezing, no rales, no rhonchi, clear to auscultation bilateral Cardiovascular: RRR, no significant murmur, no rub Gastrointestinal: soft, non-tender, no distention Musculoskeletal: no edema, pulses present Neurological: non-focal, moves all 4 limbs Psychiatric: normal affect, A&O x 3 Skin: no rash, cap refill <2 seconds Dx/Plan (1) Anemia Code(s): D64.9 - ANEMIA, UNSPECIFIED Status: Acute (2) Bone metastasis Code(s): C79.51 - SECONDARY MALIGNANT NEOPLASM OF BONE Status: Chronic (3) Paroxysmal atrial fibrillation Code(s): I48.0 - PAROXYSMAL ATRIAL FIBRILLATION Status: Acute (4) Physical deconditioning Code(s): R53.81 - OTHER MALAISE Status: Acute (5) Squamous cell carcinoma of larynx Code(s): C32.9 - MALIGNANT NEOPLASM OF LARYNX, UNSPECIFIED Status: Chronic (6) Thrombocytopenia Code(s): D69.6 - THROMBOCYTOPENIA, UNSPECIFIED Status: Acute - Plan Plan: Mr. 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 Syncope, likely 2/2 fatigue/dehydration from metastatic cancer, resolved - resolved after IV fluids. - patient reports decreased po intake prior to admission, added Marinol for appetite stimulation. Squamous Cell Carcinoma of Larynx, metastatic - PT/OT - Would benefit from inpt rehab for continued PT/OT and strengthening prior to discharge home, pt is agreeable to plan and eager for rehab - CM/rehab screen, palliative, survey research teacher consulted. - Undergoing treatment at [facility] - continue home pain medications Pancytopenia - monitor, likely secondary to malignancy and tx - H&H pending s/p 1u PRBC (11/05/19) Bandemia - Blood cx, urine cx NGTD - Procalcitonin negative - Likely 2/2 malignancy Paroxysmal A-Fib - continue metoprolol, amiodarone - Tele for monitoring, no acute events - [id number] - 1 Chronic Cough 2/2 radiation - contine albuterol prn. - repeat CXR this morning improved from admission. - he is requiring O2 intermittently. He may need O2 at home upon discharge. Insomina - continue olanzapine Constipation - continue senna, daily BM Fluids: SL Diet: no restrictions VTE: Lovenox- high risk with active cancer, will monitor Hb and Plt Code: Chem - Intubation only Dispo: Stable, inpatient. Awaiting placement.
[2019-11-06 06:35] LABS: Hemoglobin 8.4 g/dL (14.0-18.0); Mean Corpuscular HGB CONC 31.7 g/dL (32.0-36.0); Mean Corpuscular Hemoglobin 26.2 pg (27.0-31.0); Mean Corpuscular Volume 82.7 fL (78.0-98.0); Platelet Count 100 thou/uL (130-400); RBC Distribution Width 19.6 % (11.5-14.5); White Blood Cell (WBC) Count 4.2 thou/uL (4.8-10.8)
[2019-11-06] MEDS: Mometasone/Formoterol 120 PUFF INHALER INH SCH ×2 (06:59→19:18)
[2019-11-06] MEDS: Metoprolol Tartrate 25 MG TAB PO SCH ×3 (07:52→20:52)
[2019-11-06] MEDS: Senokot 8.6 MG TAB PO SCH (07:52)
[2019-11-06] MEDS: Enoxaparin Sodium 40 MG/0.4 ML SYRINGE SC SCH (07:52)
[2019-11-06] MEDS: Zinc Sulfate 220 MG CAP PO SCH (07:52)
[2019-11-06] MEDS: Midodrine HCl 5 MG TAB PO SCH ×2 (07:52→20:52)
[2019-11-06] MEDS: Senokot S 8.6-50 MG TAB PO SCH ×2 (07:52→20:52)
[2019-11-06] MEDS: Amiodarone 200 MG TAB PO SCH (07:52)
[2019-11-06] MEDS: oxyCODONE 5 MG TAB PO PRN ×2 (07:53→17:21)
[2019-11-06] MEDS: Sodium Chloride 1 GM TAB PO SCH ×2 (10:02→20:52)
[2019-11-06] MEDS: Dronabinol 2.5 MG CAP PO PRN ×2 (10:02→17:31)
--- NOTE | 2019-11-06 11:09 | RAD ---
RADIOGRAPH CHEST 1 VIEW: Date: 11/06/2019 Time: 9:25 a.m. HISTORY: A 64-year-old male with hypoxia. COMPARISON: 11/01/2019 FINDINGS: Again noted are the bibasilar pulmonary opacities. These have become slightly worse, especially on th e left where there is complete silhouetting of the left hemidiaphragm. The right hemidiaphragm has be come slightly indistinct. The mid and upper lung zones are currently clear. No cardiomegaly. No pneum othorax. IMPRESSION: Interval worsening of aeration of the bilateral lower lobes, left worse than right, by air space opac ities and possible adjacent pleural effusions. ELIZABETH [] POS: JENNIFER
[2019-11-06] MEDS: OLANZapine 2.5 MG TAB PO SCH (20:52)
[2019-11-06] MEDS: TESTOSTERONE TD SCH (20:52)
[2019-11-07] MEDS: oxyCODONE 5 MG TAB PO PRN ×2 (04:33→11:52)
--- NOTE | 2019-11-07 06:30 | PDOC.FM ---
- Subjective Subjective: Doing well today, feeling eager for PT - Objective Vital Signs & Weight: Vital Signs (12 hours) Temp Pulse Resp BP Pulse Ox 11/07/19 03:17 98.1 F 82 18 117/68 92 L 11/06/19 20:00 98.1 F 85 18 107/63 92 L 11/06/19 19:18 94 16 90 L Weight Admit Weight 90.265 kg Weight 90.265 kg I&O: 11/05/19 11/06/19 11/07/19 06:59 06:59 06:59 Intake Total 1320 1490 750 Output Total 1886 141 5997 Balance -660 1115 700 Result Diagrams: 11/06/19 06:25 11/05/19 05:49 Radiology: Repeat chest x-ray shows pleural effusions, that have mildly increased in size. See report. Phys Exam - Physical Examination Constitutional: NAD HEENT: PERRLA, moist MMs Neck: no nodes, supple, full ROM Respiratory: no wheezing, no rales, no rhonchi, clear to auscultation bilateral Cardiovascular: RRR, no significant murmur, no rub Gastrointestinal: soft, non-tender, no distention Musculoskeletal: no edema, pulses present Neurological: non-focal, normal sensation, moves all 4 limbs Psychiatric: normal affect, A&O x 3 Skin: no rash, normal turgor Dx/Plan (1) Anemia Code(s): D64.9 - ANEMIA, UNSPECIFIED Status: Acute (2) Bone metastasis Code(s): C79.51 - SECONDARY MALIGNANT NEOPLASM OF BONE Status: Chronic (3) Paroxysmal atrial fibrillation Code(s): I48.0 - PAROXYSMAL ATRIAL FIBRILLATION Status: Acute (4) Physical deconditioning Code(s): R53.81 - OTHER MALAISE Status: Acute (5) Squamous cell carcinoma of larynx Code(s): C32.9 - MALIGNANT NEOPLASM OF LARYNX, UNSPECIFIED Status: Chronic (6) Thrombocytopenia Code(s): D69.6 - THROMBOCYTOPENIA, UNSPECIFIED Status: Acute - Plan Plan: Mr. 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 Syncope, likely 2/2 fatigue/dehydration from metastatic cancer, resolved - resolved after IV fluids. - patient reports decreased po intake prior to admission, added Marinol for appetite stimulation. - will switch Marinol to Megace today, patient states the Marinol makes him too sleepy. Squamous Cell Carcinoma of Larynx, metastatic - PT/OT - Would benefit from inpt rehab for continued PT/OT and strengthening prior to discharge home, pt is agreeable to plan and eager for rehab - CM/rehab screen, palliative, speeder machine operator consulted. - Undergoing treatment at [facility] - continue home pain medications Pancytopenia - monitor, likely secondary to malignancy and tx - H&H improved after 1u PRBC. Patient undergoing radiation therapy and has known bone metastases. He will likely remain pancytopenic and require further transfusions in the future. Bandemia - Blood cx, urine cx NGTD - Procalcitonin negative - Likely 2/2 malignancy Paroxysmal A-Fib - continue metoprolol, amiodarone - Tele for monitoring, no acute events - [id number] - 1 Chronic Cough 2/2 radiation - contine albuterol prn. - repeat CXR this morning improved from admission. - he is requiring O2 intermittently. He may need O2 at home upon discharge. Insomina - continue olanzapine Constipation - continue senna, daily BM Fluids: SL Diet: no restrictions VTE: Lovenox- high risk with active cancer, will monitor Hb and Plt Code: Chem - Intubation only Dispo: Stable, inpatient. Awaiting placement.
[2019-11-07] MEDS ORDERED: Megestrol Acetate 40 MG TAB PO PRN (06:33)
[2019-11-07] MEDS: Mometasone/Formoterol 120 PUFF INHALER INH SCH (07:31)
--- NOTE | 2019-11-07 08:03 | PRG ---
DATE OF SERVICE: 11/06/2019 ADDENDUM: Addendum to the note of Dr. Meli Alonso. I agree with the assessment and plan of Dr. Meli Alonso. Job ID: [id number]
[2019-11-07] MEDS: Zinc Sulfate 220 MG CAP PO SCH (09:04)
[2019-11-07] MEDS: Metoprolol Tartrate 25 MG TAB PO SCH ×2 (09:04→14:58)
[2019-11-07] MEDS: Senokot S 8.6-50 MG TAB PO SCH (09:04)
[2019-11-07] MEDS: Enoxaparin Sodium 40 MG/0.4 ML SYRINGE SC SCH (09:05)
[2019-11-07] MEDS: Amiodarone 200 MG TAB PO SCH (09:05)
[2019-11-07] MEDS: Midodrine HCl 5 MG TAB PO SCH (09:05)
[2019-11-07] MEDS: Sodium Chloride 1 GM TAB PO SCH (09:05)
[2019-11-07] MEDS: Senokot 8.6 MG TAB PO SCH (09:05)
--- NOTE | 2019-11-07 10:59 | PDOC.EVN ---
Event Note - Event Note Event Note: 64yo M with stage IV squamous cell carcinoma of the larynx with orthostatic hypotension due to dehydration, now resolved. He has had intermittent hypoxia, CXR yesterday consistent with mild pulmonary edema. Concern for radiation therapy playing large role in his hypoxia and lung findings. Will give one time dose of Lasix today. Awaiting inpatient rehab placement. I agree with Dr. Hutchins assessment and plan with exceptions noted above. Written by Dr. Daquan Coker
[2019-11-07] MEDS ORDERED: Furosemide 20 MG TAB PO SCH (11:00)
[2019-11-07 15:45] VITALS: BP 102/62; TEMP 99.5
--- NOTE | 2019-11-08 09:09 | PQF ---
[employer] [id number] [facility]-294 [id number] CLINICAL DOCUMENTATION CLARIFICATION FORM: POST DISCHARGE Addendum to original discharge summary date: ____ Late entry note date: __ DATE:11/08/2019 ATTN: LELO VILLA Please exercise your independent, professional judgment in responding to the clarification form. Clinical indicators are provided on the bottom of this form for your review Please check appropriate box(s): Pancytopenia due to: [ x ] Chemotherapy/antineoplastic drugs [ z x ] Other drug-induced (please specify if known): radiation __ [ x ] Malignancy [ ] Other diagnosis [ ] Unable to determine For continuity of documentation, please document condition throughout progress notes and discharge summary. Thank You. CLINICAL INDICATORS - SIGNS / SYMPTOMS / LABS A few weeks ago he underwent radiation then immunomodulatory therapy for oropharyngeal cancer as well as at the two sites of metastatic cancer in the spine-Documented in Family medicine H&P on 11/01 by Kacy Monk. Anemia-Documented in Family medicine progress note on 11/07 by Meli Alonso. Thrombocytopenia-Documented in Family medicine progress note on 11/07 by Meli Alonso Pancytopenia-Monitor ,likely secondary to malignancy and Tx-Documented in Family medicine progress note on 11/07 by Meli Alonso Simone undergoing radiation therapy and has know bone metastases.He will likely remain pancytopenic and require further transfusions in the future.- Documented in Family medicine progress note on 11/07 by Meli Alonso RISK FACTORS Oropharyngeal cancer as well as at the two sites of metastatic cancer in the spine-Documented in Family medicine H&P on 11/01 by Kacy Monk. TREATMENT: H&H improved after 1u PRBC-Documented in Family medicine progress note on 11/07 by Meli Alonso [employer] (This form is maintained as a part of the permanent medical record) 2014 [employer]. All Rights Reserved [email or web address] [not provided] MTDD
--- NOTE | 2019-11-08 12:47 | DIS ---
DATE OF ADMISSION: 11/01/2019 DATE OF DISCHARGE: 11/07/2019 RESIDENT: Meli Alonso MD ADMITTING ATTENDING: Shiv Nelson MD DISCHARGE ATTENDING: Daquan Coker MD CONSULTATIONS: None. PROCEDURES: None. PRIMARY DIAGNOSIS: Syncope likely secondary to orthostatic hypotension. SECONDARY DIAGNOSES: 1. Orthostatic hypotension. 2. Dehydration. 3. Deconditioning. 4. Squamous cell carcinoma of the larynx with metastasis to the spine. 5. Fatigue. 6. Bandemia. 7. Paroxysmal atrial fibrillation. 8. Cough. 9. Insomnia. 10. Constipation. 11. Thrombocytopenia. 12. Pancytopenia. DISCHARGE MEDICATIONS: 1. Megace. 2. Albuterol. 3. Amiodarone. 4. Vitamin D3. 5. Metoprolol. 6. Multivitamins. 7. Olanzapine. 8. Oxycodone. 9. Pantoprazole. 10. MiraLAX. 11. Senna. 12. Colace. 13. Sucralfate. 14. Testosterone cream. 15. Valacyclovir. DISCONTINUED MEDICATIONS: None. HOSPITAL COURSE: Mr. Joseph is a 64-year-old male with a history of squamous cell carcinoma of his larynx with diffuse metastasis. He was diagnosed 15 months ago. He presents today after 2 syncopal event and generalized fatigue. He is profoundly weak and has been unable to get in and out of bed by himself and even with help. He becomes lightheaded while standing and has passed out twice. He recently within the last several weeks was under immunotherapy and radiation. Throughout his stay, he slowly improved with fluid rehydration via his IV and increased nutritional support. He was evaluated by Physical therapy and Occupational therapy and was recommended that he be discharged to inpatient rehab for further physical therapy activity. DISCHARGE INSTRUCTIONS: Location: Home. Diet: Regular. Activity: Ad andrea. Follow up with primary care physician after discharge. Job ID: [id number]
== END 2019-11-07 17:31 | DRG 312 ==
LOC: ERS 10:55 → 2NO 17:52 → INTOOBSV 17:52 → OBSVTOIN 17:52
PROVIDERS: ADMIT Emergency Medicine; ATTEND Emergency Medicine
DX: I95.1 Orthostatic hypotension (principal); D61.810 Antineoplastic chemotherapy induced pancytopenia; D61.811 Other drug-induced pancytopenia; C79.51 Secondary malignant neoplasm of bone; C77.9 Secondary and unspecified malignant neoplasm of lymph node, unspecified; D61.818 Other pancytopenia; E86.0 Dehydration; C32.9 Malignant neoplasm of larynx, unspecified; D69.6 Thrombocytopenia, unspecified; T66.XXXA Radiation sickness, unspecified, initial encounter; G47.00 Insomnia, unspecified; K59.00 Constipation, unspecified; I48.0 Paroxysmal atrial fibrillation; Z51.5 Encounter for palliative care; D72.825 Bandemia; D64.81 Anemia due to antineoplastic chemotherapy; R40.2362 Coma scale, best motor response, obeys commands, at arrival to emergency department; R40.2142 Coma scale, eyes open, spontaneous, at arrival to emergency department; R40.2252 Coma scale, best verbal response, oriented, at arrival to emergency department; R53.83 Other fatigue
CPT/HCPCS: 36415; 36430; 70450; 71045; 80048; 80053; 81003; 81015; 82728; 83540; 83550; 83690; 83735; 83880; 84145; 84484; 85007; 85014; 85018; 85025; 85027; 85049; 86850; 86900; 86901; 87040; 87086; 87205; 93005; J1650; J1756; J7050; P9016; Q0162; Q0167; S0179

== ENCOUNTER 2020-01-02 13:44 | Emergency (ER) | payer OTHER ==
[2020-01-02 14:20] LABS: Hemoglobin 7.3 g/dL (14.0-18.0); Mean Corpuscular HGB CONC 30.9 g/dL (32.0-36.0); Mean Corpuscular Hemoglobin 27.9 pg (27.0-31.0); Mean Corpuscular Volume 90.1 fL (78.0-98.0); Platelet Count 67 thou/uL (130-400); RBC Distribution Width 19.7 % (11.5-14.5); Red Blood Cell (RBC) Count 2.63 mill/uL (4.70-6.10); White Blood Cell (WBC) Count 11.3 thou/uL (4.8-10.8)
[2020-01-02 14:21] LABS: #Eosinphils 0.1 thou/uL (0.0-0.7); #Lymphocytes 0.7 thou/uL (1.20-3.40); #Monocytes 0.8 thou/uL (0.11-0.59); #Neutrophils 9.8 thou/uL (1.40-6.50); %Basophils 0.1 % (0.0-1.0); %Eosinophils 0.5 % (0.0-10.0); %Lymphocytes 5.8 % (21.0-51.0); %Monocytes 7.3 % (0.0-10.0); %Neutrophils 86.3 % (42.0-75.0)
[2020-01-02 14:37] LABS: ALT (SGPT) 8 U/L (8-55); AST (SGOT) 45 U/L (5-34); Albumin 2.6 g/dL (3.4-4.8); Alkaline Phosphatase 218 U/L (40-110); Anion Gap 15 mmol/L (10-20); BUN (Urea Nitrogen) 16 mg/dL (8.4-25.7); Bilirubin, Total 0.7 mg/dL (0.2-1.2); Calc. Creatinine Clearance 0 mL/min (70-130); Calcium 8.7 mg/dL (7.8-10.44); Carbon Dioxide 29 mmol/L (23-31); Chloride 96 mmol/L (98-107); Estimated GFR-MDRD Greater than 90; Globulin 3.3 g/dL (2.4-3.5); Glucose 110 mg/dL (80-115); Potassium 5.5 mmol/L (3.5-5.1); Protein, Total 5.9 g/dL (5.8-8.1); Sodium 134 mmol/L (136-145)
[2020-01-02 14:39] LABS: Anisocytosis MODERATE=16-30 cells (100X) (0-5/hpf); Band 38 % (5-11); Hypochromia SLIGHT = 6-15 cells (100X) (0-5/hpf); Lymphocytes 1 % (21-51); MDiff Complete? YES; Metamyelocyte 2 % (0-0); Monocytes 6 % (0-10); Myelocyte 3 % (0-0); Neutrophil 48 % (42-75); Nucleated RBC 1 % (0); Platelet Morphology Comment Appears Decreased; Polychromasia MODERATE = 3-4 cells (100X) (0-2/hpf); Reactive Lymphocytes 2 % (0-10); Stomatocytes SLIGHT = 2-5 cells (100X) (0-1/hpf); Tear Drops SLIGHT = 2-5 cells (100X) (0-1/hpf)
== END 2020-01-02 18:40 | disposition home or self-care (01) ==
LOC: ERS 13:44
DX: D64.9 Anemia, unspecified (principal); F41.9 Anxiety disorder, unspecified; J45.909 Unspecified asthma, uncomplicated; I48.91 Unspecified atrial fibrillation; Z79.899 Other long term (current) drug therapy
CPT/HCPCS: 36430; 80053; 85025; 85060; 86850; 86900; 86901; 96360; 96361; P9016

== ENCOUNTER 2020-01-03 10:54 | Observation (INO) | payer OTHER ==
[2020-01-03 11:30] LABS: #Eosinphils 0.1 thou/uL (0.0-0.7); #Lymphocytes 0.6 thou/uL (1.20-3.40); #Monocytes 0.7 thou/uL (0.11-0.59); #Neutrophils 9.1 thou/uL (1.40-6.50); %Basophils 0.1 % (0.0-1.0); %Eosinophils 0.5 % (0.0-10.0); %Lymphocytes 5.5 % (21.0-51.0); %Monocytes 6.9 % (0.0-10.0); Hemoglobin 8.9 g/dL (14.0-18.0); Mean Corpuscular HGB CONC 30.5 g/dL (32.0-36.0); Mean Corpuscular Hemoglobin 27.6 pg (27.0-31.0); Mean Corpuscular Volume 90.3 fL (78.0-98.0); Mean Platelet Volume 9.7 fL (7.4-10.4); Platelet Count 60 thou/uL (130-400); RBC Distribution Width 19.6 % (11.5-14.5); Red Blood Cell (RBC) Count 3.23 mill/uL (4.70-6.10); White Blood Cell (WBC) Count 10.5 thou/uL (4.8-10.8)
[2020-01-03 11:52] LABS: ALT (SGPT) 9 U/L (8-55); AST (SGOT) 44 U/L (5-34); Albumin 2.7 g/dL (3.4-4.8); Alkaline Phosphatase 212 U/L (40-110); Anion Gap 14 mmol/L (10-20); BUN (Urea Nitrogen) 17 mg/dL (8.4-25.7); Bilirubin, Total 0.8 mg/dL (0.2-1.2); CK (CPK) 202 U/L (30-200); Calc. Creatinine Clearance 0 mL/min (70-130); Carbon Dioxide 26 mmol/L (23-31); Chloride 96 mmol/L (98-107); Estimated GFR-MDRD Greater than 90; Globulin 3.4 g/dL (2.4-3.5); Glucose 93 mg/dL (80-115); Potassium 4.3 mmol/L (3.5-5.1); Protein, Total 6.1 g/dL (5.8-8.1); Sodium 132 mmol/L (136-145)
--- NOTE | 2020-01-03 11:53 | RAD ---
Exam: Chest one view HISTORY:Dyspnea. Weakness. Shortness of breath. Comparison: 11/06/2019 FINDINGS: Cardiac silhouette: Normal Aorta: Unremarkable Pulmonary vessels: Normal Costophrenic angles: Small bilateral effusions. LUNGS: Bibasilar parenchymal changes which may represent atelectasis, aspiration or pneumonia. Pneumothorax: None Osseous abnormalities: Chronic degenerative changes in both shoulders. IMPRESSION: Bibasilar pleural and parenchymal changes. Continued surveillance is recommended.
--- NOTE | 2020-01-03 12:09 | CT ---
CT PULMONARY ANGIOGRAM WITH IV CONTRAST AND 3-D POSTPROCESSING: HISTORY:Dyspnea, cancer in the throat FINDINGS: There is good contrast opacification of the pulmonary arterial vasculature without filling defects to suggest pulmonary embolism. The thoracic aorta is well opacified without aneurysm or dissection. Moderate-sized bilateral pleural effusions are seen. There are adjacent atelectatic changes. No pneumothoraces are noted. There are degenerative changes in the spine. There are sclerotic lesions in the spine, scapulae and r ibs suspicious for metastatic disease. There are fractures of the right 4 through 10 ribs. Upper abdominal tomograms demonstrate well-circumscribed multiple low-density lesions in the liver, s uspicious for metastatic disease which should be evaluated with an ultrasound.. IMPRESSION: No CT evidence of pulmonary embolism.
[2020-01-03] MEDS ORDERED: Furosemide 40 MG/4 ML VIAL ONE (12:26)
[2020-01-03 13:15] LABS: Bilirubin Negative (Negative); Blood, Urine Negative (Negative); Clarity Clear (Clear); Glucose, Urine (Dipstick) Normal (Negative); Leukocyte Negative Leu/uL (Negative); Nitrite Negative (Negative); Protein, Urine (Dipstick) 20 mg/dL (Neg-Trace)
[2020-01-03] MEDS ORDERED: Iopamidol-370 76% 500 ML 1 ML ONE (13:15)
--- NOTE | 2020-01-03 13:27 | PDOC.FPRHP ---
- History of Present Illness Chief Complaint: SOB, syncope x1 History of Present Illness: Mr. Joseph is a 64yoM who presents to the ED for increasing shortness of breath. He states it started worsening on Monday 01/01 and has progressively worsened since then. He was in the ED yesterday for a transfusion of 1u prbc after his hemoglobin came back at 6.6 on labs ordered by his oncologist. Today he also became dizzy while standing, sat down, and then briefly lost consciousness. This was witnessed and he did not fall. He has a history of metastatic throat cancer and anemia. He is no longer undergoing chemotherapy or radiation. He is interested in palliative measures, however he states he does not want hospice care. ED Course: 80mg lasix, 1L NS - Allergies/Adverse Reactions Allergies Allergy/AdvReac Type Severity Reaction Status Date / Time No Known Drug Allergies Allergy Verified 11/01/19 18:32 - Home Medications Medication Instructions Recorded Confirmed Type Metoprolol Tartrate 25 mg PO TID 11/01/19 01/03/20 History Multivit-Min/FA/Lycopen/Lutein 1 each PO DAILY 11/01/19 01/03/20 History [Centrum Silver Men Tablet] Pantoprazole [Protonix] 40 mg PO DAILY 11/01/19 01/03/20 History Sennosides [Senna] 8.6 mg PO DAILY 11/01/19 01/03/20 History valACYclovir [Valtrex] 500 mg PO DAILY PRN 11/01/19 01/03/20 History Morphine ER [MS Contin] 15 mg PO DAILY 01/03/20 01/03/20 History - History PMHx: 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 - Review of Systems General: reports: weight/appetite/sleep changes, fatigue. denies: fever/chills , night sweats Eyes: denies: eye pain, vision changes ENT: denies: nasal congestion, rhinorrhea Respiratory: reports: shortness of breath, exercise intolerance. denies: cough , congestion Cardiovascular: reports: edema, orthopnea. denies: chest pain, palpitation, paroxysmal nocturnal dyspnea Gastrointestinal: denies: nausea, vomiting, diarrhea, constipation, abdominal pain Genitourinary: denies: dysuria, polyuria Skin: denies: rashes, lesions Musculoskeletal: reports: pain, swelling. denies: tenderness, stiffness Neurological: reports: syncope, weakness. denies: numbness, seizure Psychological: reports: anxiety. denies: depression - Vital signs BP: 128/88, MAP: 101, Pulse: 100, Resp: 18, O2 sat: 98 on (Room Air), Time: 2019 10:58 - Physical Exam Constitutional: NAD, awake, alert and oriented, well developed HEENT: normocephalic and atraumatic, PERRLA, EOMI, conjunctiva clear, grossly normal vision, grossly normal hearing Neck: supple, trachea midline Chest: no-tender to palpation Heart: RRR, normal S1/S2, no murmurs/rubs/gallops, pulses present Lungs: CTAB, no respiratory distress, good air movement, no rales/rhonchi, no wheezing Abdomen: soft, non-tender, bowel sounds present Musculoskeletal: normal structure, normal tone -Musculoskeletal: Decreased strength bilaterally Neurological: no focal deficit, CN II-XII intact Skin: no rash/lesions, good turgor -Skin: evidence of radiation lyons on chest Heme/Lymphatic: no unusual bruising or bleeding, no purpura Psychiatric: normal mood and affect, good judgment and insight FMR H&P: Results - Labs Result Diagrams: 01/03/20 11:07 01/03/20 11:07 Lab results: WBC 10.5 thou/uL (4.8-10.8) 01/03/20 11:07 Hgb 8.9 g/dL (14.0-18.0) L 01/03/20 11:07 Hct 29.1 % (42.0-52.0) L 01/03/20 11:07 MCV 90.3 fL (78.0-98.0) 01/03/20 11:07 Plt Count 60 thou/uL (130-400) L 01/03/20 11:07 Neutrophils % 87.0 % (42.0-75.0) H 01/03/20 11:07 Sodium 132 mmol/L (136-145) L 01/03/20 11:07 Potassium 4.3 mmol/L (3.5-5.1) 01/03/20 11:07 Chloride 96 mmol/L (98-107) L 01/03/20 11:07 Carbon Dioxide 26 mmol/L (23-31) 01/03/20 11:07 BUN 17 mg/dL (8.4-25.7) 01/03/20 11:07 Creatinine 0.75 mg/dL (0.7-1.3) 01/03/20 11:07 Glucose 93 mg/dL (80-115) 01/03/20 11:07 Lactic Acid 3.7 mmol/L (0.5-2.2) H 01/03/20 11:07 Calcium 9.0 mg/dL (7.8-10.44) 01/03/20 11:07 Total Bilirubin 0.8 mg/dL (0.2-1.2) 01/03/20 11:07 AST 44 U/L (5-34) H 01/03/20 11:07 ALT 9 U/L (8-55) 01/03/20 11:07 Alkaline Phosphatase 212 U/L (40-110) H 01/03/20 11:07 Creatine Kinase 202 U/L (30-200) H 01/03/20 11:07 B-Natriuretic Peptide 164.9 pg/mL (0-100) H 01/03/20 11:07 Serum Total Protein 6.1 g/dL (5.8-8.1) 01/03/20 11:07 Albumin 2.7 g/dL (3.4-4.8) L 01/03/20 11:07 Urine Ketones Negative mg/dL (Negative) 01/03/20 12:50 Urine Blood Negative (Negative) 01/03/20 12:50 Urine Nitrite Negative (Negative) 01/03/20 12:50 Ur Leukocyte Esterase Negative Eder/uL (Negative) 01/03/20 12:50 - EKG Interpretation EKG: NSR - Radiology Interpretation CT scan - chest Status: image reviewed by me (There are degenerative changes in the spine. There are sclerotic lesions in the spine, scapulae and ribs suspicious for metastatic disease. There are fractures of the right 4 through 10 ribs. Upper abdominal tomograms demonstrate well-circumscribed multiple low-density lesions in the liver, s uspicious for metastatic disease which should be evaluated with an ultrasound.. IMPRESSION: No CT evidence of pulmonary embolism.), report reviewed by me FMR H&P: A/P - Problem List (1) Symptomatic anemia Current Visit: Yes Status: Acute Code(s): D64.9 - ANEMIA, UNSPECIFIED (2) Bilateral pleural effusion Current Visit: Yes Status: Acute Code(s): J90 - PLEURAL EFFUSION, NOT ELSEWHERE CLASSIFIED (3) Paroxysmal atrial fibrillation Current Visit: No Status: Acute Code(s): I48.0 - PAROXYSMAL ATRIAL FIBRILLATION (4) Physical deconditioning Current Visit: No Status: Acute Code(s): R53.81 - OTHER MALAISE (5) Bone metastasis Current Visit: No Status: Chronic Code(s): C79.51 - SECONDARY MALIGNANT NEOPLASM OF BONE (6) Squamous cell carcinoma of larynx Current Visit: No Status: Chronic Code(s): C32.9 - MALIGNANT NEOPLASM OF LARYNX, UNSPECIFIED - Plan Symptomatic bilateral pleural effusions - Patient is dyspneic, moreso than usual. - Requiring O2 intermittently. - Will monitor for improvement after administration of lasix - Will consider additional dose of lasix tomorrow pending clinical course. Deconditioning - PT / OT consulted Orthostatic hypotension, dysautonomia s/p radiation - Patient has had orthostatics in the past. Seems to have had orthostatic syncope this afternoon. - Will monitor VS closely. Disposition/LOS: Dispo: Guarded, patient prognosis is poor. Code status: No compressions. Only meds and intubation VTE: Lovenox FMR H&P: Upper Level - Plan Date/Time: 01/03/20 1325 ISp MD, have evaluated this patient and agree with findings/plan as outlined by commercial intern resident. Pertinent changes/additions are listed here. Chuck Padilla is a 64 year old M with a PMH of Paroxysmal A fib, Asthma, SCC of throat with metastasis to liver, lung and spine who presented to the ED with worsening weakness and syncepal episode today and yesterday. He has a history of symptomatic anemia requiring periodic blood transfusions over the last several months. He was experiencing increased dyspnea yesterday and went to ED where his Hg was 6.6 and he was transfused one unit pRBC. He denies any fever, chills, chest pain. However, his dyspnea did not improve and he got lightheaded and passed out while sitting down today, prompting family to bring him to the ED. Denies any palpitations. In the ED, vitals were stable and wnl. CXR showed bibasilar pleural and parenchymal changes and CTA showed no PE but moderate b/l pleural effusions. Labs significant for 3.7, BNP 164, trop 0.012, WBC 10.5, Hg 8.9, Platelets 60, Alk phos 212, AST 44, ALT 9, Na 132, Cr 0.73. Patient is being admitted to obs for symptomatic pleural effusion, deconditioning. In ED, he was given lasix. Will continue to gently diurese him. He has failed chemo and other therapies for cancer and has no more treatment options. He would not like to pursue aggressive treatment and would like to speak to palliative care while in hospital. Will provide home pain regimen with additional prns for breakthrough pain. Consulted palliative care team. Please see commercial intern note above for full H&P, which I have reviewed and agree with. Addendum - Attending - Attending Attestation Date/Time: 01/03/20 9787 I personally evaluated the patient and discussed the management with Dr. Alonso/ Bruce. I agree with the History, Examination, Assessment and Plan documented above with any addition or exceptions noted below. Patient with metastatic cancer here with increasing weakness, fatigue, dyspnea. He received transfusion yesterday that actually made him feel worse. His blood counts are improved today but CXR shows findings consistent with volume overload. He has b/l mild pleural effusions and some interstitial fluid. Uncertain whether this is related to poor oncotic force or something such as a malignant effusion. He has been started on diuresis by the ED. Labs otherwise stable and his vital signs are stable. He is deconditioned and his orthostasis from dysautonomia are worsening. He would likely benefit from therapy, dietary consults, and palliative care to help keep him comfortable and clarify goals of care.
[2020-01-03 14:40] VITALS: BMI 24.4
[2020-01-03] MEDS ORDERED: Acetaminophen 325 MG TAB PO PRN (14:40)
[2020-01-03] MEDS ORDERED: Ondansetron ODT 4 MG TAB PO PRN (14:51)
[2020-01-03] MEDS ORDERED: Senokot S 8.6-50 MG TAB PO PRN (14:51)
[2020-01-03] MEDS ORDERED: valACYclovir 500 MG TAB PO PRN (14:55)
[2020-01-03 14:56] LABS: Lactic Acid 2.2 mmol/L (0.5-2.2)
[2020-01-03] MEDS: Metoprolol Tartrate 25 MG TAB PO SCH ×2 (15:53→22:19)
[2020-01-03] MEDS ORDERED: Furosemide 40 MG/4 ML VIAL SLOW IVP SCH (18:00)
[2020-01-03] MEDS ORDERED: Enoxaparin Sodium 40 MG/0.4 ML SYRINGE SC SCH (19:45)
[2020-01-03] MEDS ORDERED: Metoprolol Tartrate 5 MG/5 ML VIAL IVP SCH (20:15)
[2020-01-03] MEDS ORDERED: Sodium Chloride 0.9% 500 ML IV SCH (20:15)
--- NOTE | 2020-01-03 20:39 | PDOC.BPN ---
- Brief Progress Note Chuck Joseph is a 64 yo gentleman w/ PMH significant for paroxysmal atrial fibrillation, metastatic throat cancer who was admitted for symptomatic pleural effusions. Early in the evening he converted into atrial fibrillation w/ rvr c/ w EKG, heart rate 147, SBP in the 80's. At this time he was SOB. Mr. Joseph was assessed and administered Metoprolol 2.5 mg IV once and transfer request to IMCU placed. Pending electrolytes, troponin, TSH. Bolused NS 500 mg in attempts to help replete intravascular space after receiving Lasix 80 mg IV once in the emergency department. Of note, he states he was dehydrated before his first episode of a-fib, 10/2019. Will continue to monitor through the evening. Will keep close watch on his heart rate and pressures with the administration of rate controlling medications. Pt seen and evaluated with Dr. Garcia, Dr. Monk who agree with above plan. Pee Mirza, 203601/03/20
[2020-01-03 20:54] LABS: Anion Gap 16 mmol/L (10-20); BUN (Urea Nitrogen) 18 mg/dL (8.4-25.7); Calc. Creatinine Clearance 115 mL/min (70-130); Calcium 8.1 mg/dL (7.8-10.44); Carbon Dioxide 27 mmol/L (23-31); Chloride 94 mmol/L (98-107); Estimated GFR-MDRD Greater than 90; Glucose 100 mg/dL (80-115); Magnesium 1.6 mg/dL (1.6-2.6); Potassium 4.2 mmol/L (3.5-5.1); Sodium 133 mmol/L (136-145)
[2020-01-03] MEDS: Morphine 4 MG/ML VIAL SLOW IVP PRN (22:24)
[2020-01-04 00:20] LABS: Troponin I 0.016 ng/mL (< 0.028)
[2020-01-04] MEDS ORDERED: Metoprolol Tartrate 25 MG TAB PO SCH (01:00)
[2020-01-04] MEDS: Morphine 4 MG/ML VIAL SLOW IVP PRN ×3 (02:50→13:58)
--- NOTE | 2020-01-04 05:03 | PDOC.FM ---
- Subjective Subjective: Mr. Joseph is doing well this morning. He states he feels that his breathing is better. He is eager to talk to palliative care this morning. - Objective MAR Reviewed: Yes Vital Signs & Weight: Vital Signs (12 hours) Temp Pulse Resp BP BP Pulse Ox 01/04/20 03:35 97.7 F 01/03/20 23:19 97.8 F 01/03/20 19:00 98.7 F 89 20 97/65 94 L 01/03/20 18:51 97.8 F 73 24 H 86/59 L 97 Weight Admit Weight 86.183 kg Weight 86.273 kg Most Recent Monitor Data Heart Rate from ECG 78 NIBP 95/65 NIBP BP-Mean 75 Respiration from ECG 19 SpO2 97 I&O: 01/02/20 01/03/20 01/04/20 06:59 06:59 06:59 Output Total 900 Balance -900 Result Diagrams: 01/03/20 11:07 01/04/20 09:16 Phys Exam - Physical Examination Constitutional: NAD HEENT: PERRLA, moist MMs, sclera anicteric Neck: no JVD, supple Respiratory: no wheezing, no rales, no rhonchi, clear to auscultation bilateral Cardiovascular: RRR, no significant murmur Normal sinus rhythm on monitor Gastrointestinal: soft, non-tender Musculoskeletal: pulses present, edema present (trace) Neurological: non-focal, normal sensation Psychiatric: normal affect, A&O x 3 Skin: no rash, normal turgor Dx/Plan (1) Symptomatic anemia Code(s): D64.9 - ANEMIA, UNSPECIFIED Status: Acute (2) Bilateral pleural effusion Code(s): J90 - PLEURAL EFFUSION, NOT ELSEWHERE CLASSIFIED Status: Acute (3) Paroxysmal atrial fibrillation Code(s): I48.0 - PAROXYSMAL ATRIAL FIBRILLATION Status: Acute (4) Physical deconditioning Code(s): R53.81 - OTHER MALAISE Status: Acute (5) Bone metastasis Code(s): C79.51 - SECONDARY MALIGNANT NEOPLASM OF BONE Status: Chronic (6) Squamous cell carcinoma of larynx Code(s): C32.9 - MALIGNANT NEOPLASM OF LARYNX, UNSPECIFIED Status: Chronic - Plan Plan: Symptomatic bilateral pleural effusions - Patient is dyspneic, moreso than usual. - Requiring O2 intermittently. - Will monitor for improvement after administration of lasix Paroxysmal A-Fib - Patient is rate controlled at home on Metoprolol. - Patient went into A-fib w/ RVR last night and was transferred from [facility] to [facility]. - Patient is now in sinus rhythm, asymptomatic. S/p IV metoprolol and 500mL bolus. - Will transfer back to telemetry. Deconditioning - PT / OT consulted Orthostatic hypotension, dysautonomia s/p radiation - Patient has had orthostatics in the past. Seems to have had orthostatic syncope this afternoon. - Will monitor VS closely. Disposition/LOS: Dispo: Guarded, patient prognosis is poor. Code status: No compressions. Only meds and intubation VTE: Lovenox - held due to platelets <100. Addendum - Attending - Attending Attestation Date/Time: 01/04/20 [id number] I personally evaluated the patient and discussed the management with the team. I agree with the History, Examination, Assessment and Plan documented above with any addition or exceptions noted below. No f/c, no n/v. On exam - consistent with large B pleural effusions. Await pulm input.
[2020-01-04] MEDS ORDERED: predniSONE 20 MG TAB PO SCH (08:00)
[2020-01-04] MEDS ORDERED: Senokot 8.6 MG TAB PO SCH (09:00)
[2020-01-04] MEDS ORDERED: Prevnar 13-Val Conj/PF 0.5 ML SYRINGE IM ONE (09:00)
[2020-01-04] MEDS ORDERED: Morphine ER 15 MG TAB PO SCH (09:00)
[2020-01-04] MEDS ORDERED: Enoxaparin Sodium 40 MG/0.4 ML SYRINGE SC SCH (09:00)
[2020-01-04] MEDS ORDERED: Multivitamin W/ Minerals 1 TAB PO SCH (09:00)
[2020-01-04] MEDS: Metoprolol Tartrate 25 MG TAB PO SCH ×2 (09:36→13:59)
[2020-01-04 09:53] LABS: Anion Gap 12 mmol/L (10-20); BUN (Urea Nitrogen) 17 mg/dL (8.4-25.7); Calc. Creatinine Clearance 128 mL/min (70-130); Calcium 8.1 mg/dL (7.8-10.44); Carbon Dioxide 29 mmol/L (23-31); Chloride 95 mmol/L (98-107); Estimated GFR-MDRD Greater than 90; Glucose 86 mg/dL (80-115); Potassium 3.7 mmol/L (3.5-5.1); Sodium 132 mmol/L (136-145)
[2020-01-04] MEDS ORDERED: Lidocaine 1% (PF) 30 ML VIAL ONE (12:01)
[2020-01-04] MEDS ORDERED: EPINEPHrine 1 MG/ML AMP ONE (12:01)
--- NOTE | 2020-01-04 12:39 | CON ---
DATE OF CONSULTATION: HISTORY OF PRESENT ILLNESS: Chuck Joseph is a 64-year-old gentleman from the [place] area, now he is living with his daughter, presented to the hospital yesterday with symptoms of weakness, shortness of breath, and lower extremity swelling. He was given some Lasix yesterday to which he said he is feeling better today. He has been seen at [facility] for the last 20 months with a diagnosis of head and neck cancer, particularly tonsils, squamous cell, received chemo and radiation. Unfortunately, his cancer now is widespread and metastatic. Now, he is in the process of getting palliative therapy treatment. Though, his x-ray and CT chest was done, which shows large bilateral pleural effusion. Nonsmoker, nondrinker. PAST MEDICAL HISTORY: Pertinent for metastatic throat cancer to bones, lymph nodes, liver, and chest apparently. PAST SURGICAL HISTORY: Rotator cuff surgery, tail bone. HOME MEDICATIONS: Include; 1. MS Contin 15. 2. Metoprolol 25. 3. . 4. Protonix 40. 5. Vitamin. 6. Valtrex 500. ALLERGIES: NONE. REVIEW OF SYSTEMS: Otherwise, negative. PHYSICAL EXAMINATION: VITAL SIGNS: On examination, his blood pressure is 108/73; pulse 83, atrial fibrillation; respiratory rate 18; temperature is 97; and saturations are 99%. CHEST: Decreased breath sounds bilaterally. CARDIAC: Normal S1 and S2. No gallops. ABDOMEN: No masses. LABORATORY STUDIES: Sodium 132, BUN was normal. White count 10,000, H and H of 9 and 29, platelet count is 60. TSH is normal. BNP is 164. ASSESSMENT: 1. Bilateral pleural effusion, probably metastatic cancer. 2. Hyponatremia. 3. Anemia. 4. Thrombocytopenia. 5. Head and neck cancer with multiple metastases. PLAN: Therapeutic thoracentesis is done. Otherwise, comfort care. Consultation note, 70 minutes, 50% direct patient care exclusive of the thoracentesis. Job ID: [id number]
--- NOTE | 2020-01-04 12:40 | RAD ---
XR Chest 1 View Portable History: Thoracentesis Comparison: CT angiogram prior day Findings: Interval size increase right layering pleural effusion. Layering left pleural effusion is s imilar. No significant pneumothorax. Severe degenerative disease both glenohumeral joints. Aortic contour are similar. Impression: 1. Marked interval improvement right pleural effusion. 2. Left pleural effusion is similar 3. No pneumothorax. 4. The sclerotic lesions of the skeleton are not well-defined on this exam. 5. Incomplete evaluation right rib fractures.
[2020-01-04 13:25] LABS: RBC Count-Automated (BF) 2384 /cumm; WBC/Nucleated-Auto (BF) 169 uL
[2020-01-04 13:39] LABS: Pleural Fluid, Protein 2.3 g/dL
[2020-01-04 13:51] LABS: BF Color Yellow; Body Fluid Source Pleural Fluid; Clarity Hazy (Clear); Tube # EDTA
[2020-01-04 13:55] LABS: BF Segmented Neutrophils 14 %; Cell Count Non Hematic 75 %; Lymphocytes 10 %
--- NOTE | 2020-01-04 15:32 | PDOC.PALCO ---
Palliative Care Consult - Consult Details Requesting Physician: Dr Alonso Reason for Consult: goals of care, assistance with communication prognosis/ disease, family support Family Members Present: Patient son - Pertinent HPI 64 year old male who is familiar to the Palliative Care Team. Has been treated for metastatic throat cancer. Currently with progressing disease. Patient had onset and increasing shortness of breath. Onset 01/01, presented to emergency room 01/02 for transfusion. 01/03 witnessed syncopal episode without fall so returned to emergency room for further evaluation of syncope and shortness of breath. Admitted to [facility] with bilateral pleural effusions for medical management and higher level of care. Initial visit with patient he requested I return when his daughter arrived. Returned and met with patient with Dr Alonso. - Social History Smoking Status: Never smoker Smoking: no tobacco exposure Alcohol Use: none Drug Use History: none Living Situation: other (Lived independently prior to cancer diagnosis) - Medications MAR Reviewed: Yes - Allergies Allergies/Adverse Reactions: Allergies Allergy/AdvReac Type Severity Reaction Status Date / Time No Known Drug Allergies Allergy Verified 11/01/19 18:32 - Subjective Awake, alert, eating lunch. Thoracentesis performed and patient states he is breathing "much easier" - ROS Constitutional: loss appetite, sleep changes, weakness, weight changes Eyes: other (denies visual changes) ENT: dry mouth Respiratory: shortness of breath with extertion, other (denies cough, wheezing) Cardiology: light headedness Genitourinary: other (negative for nausea, vomiting, abdominal pain) Musculoskeletal: back pain, leg pain, limited mobility Neurological: dizziness Skin: other (Fair turgor) Psychological: anxiety - Objective Vital Signs: Vital Signs - Most Recent Temp Pulse Resp BP Pulse Ox 97.4 F L 77 20 108/73 94 L 01/04/20 07:36 01/04/20 11:20 01/03/20 19:00 01/04/20 11:20 01/03/20 19:00 Palliative Performance Scale: 50 - Physical Exam Constitutional: ill appearing HEENT: EOMI, moist MMs, sclera anicteric Respiratory: unlabored breathing Cardiovascular: RRR Gastrointestinal: continent Genitourinary: continent Musculoskeletal: no cyanosis, no clubbing, muscle wasting Neurology: moves all 4 limbs Skin: no lesions, no rash Psychiatric: A&O x 3, flat affect - Problem List (1) Anemia Code(s): D64.9 - ANEMIA, UNSPECIFIED Current Visit: Yes Status: Acute (2) Bilateral pleural effusion Code(s): J90 - PLEURAL EFFUSION, NOT ELSEWHERE CLASSIFIED Current Visit: Yes Status: Acute (3) Bone metastasis Code(s): C79.51 - SECONDARY MALIGNANT NEOPLASM OF BONE Current Visit: Yes Status: Chronic (4) Squamous cell carcinoma of larynx Code(s): C32.9 - MALIGNANT NEOPLASM OF LARYNX, UNSPECIFIED Current Visit: Yes Status: Chronic (5) Palliative care encounter Code(s): Z51.5 - ENCOUNTER FOR PALLIATIVE CARE Current Visit: No Status: Acute (6) Physical deconditioning Code(s): R53.81 - OTHER MALAISE Current Visit: No Status: Acute - Plan/Recommendations Plan: Goals of care. *Hospice appropriate but not "hospice ready" *Discussed burden of revisiting hospital and decrease in quality of life *Consideration for d/c home with home health that has both palliative care and hospice. COnsult placed for CM to reach out to [facility] home health and hospice Please also refer to Carlos Simpson RNhealthcare risk control consultant notes in note section. [45] minutes spent on this encounter with >50% of the time in counseling and coordination of care. Thank you for this very appropriate consult.
[2020-01-04 15:48] VITALS: TEMP 97.3
[2020-01-04 17:27] VITALS: BP 121/74
--- NOTE | 2020-01-06 16:48 | OP ---
DATE OF PROCEDURE: 01/04/2020 PROCEDURE PERFORMED: Thoracentesis. INDICATION: Pleural effusion. DESCRIPTION OF PROCEDURE: After informed consent, the right posterior thorax was cleaned with chlorhexidine. Initially, 1% lidocaine was infiltrated into the 9th intercostal space all the way to the pleura. To my surprise, no significant effusion was obtained. Thereafter, the 8th intercostal space was infiltrated with lidocaine. Once again, pleural cavity was entered and no fluid was obtained. Thereafter, the 10th intercostal space in the posterior septal and infiltrated with 1% lidocaine all the way to the pleura and 20 mL of turbid yellow fluid was removed. Thereafter, using an 8-Peruvian catheter, a total of 1500 mL was removed without difficulty. Pleural fluid was sent for appropriate studies including cytology and culture. The patient tolerated the procedure well. Job ID: [id number]
--- NOTE | 2020-01-07 09:34 | DIS ---
DATE OF ADMISSION: 01/03/2020 DATE OF DISCHARGE: 01/04/2020 PROCEDURE: Thoracentesis. CONSULTS: Dr. Valenzuela, home demonstration agent; Susu Christy, palliative care RN. PRIMARY DIAGNOSIS: Symptomatic pleural effusion. SECONDARY DIAGNOSES: Deconditioning, orthostatic hypotension/dysautonomia, and metastatic stage IV cancer originating in the throat. DISCHARGE MEDICATIONS: 1. Prednisone. 2. Lasix p.r.n. 3. Valtrex. 4. Senna. 5. Pantoprazole. 6. Morphine. 7. Metoprolol. DISCONTINUED MEDICATIONS: None. HISTORY OF PRESENT ILLNESS/HOSPITAL COURSE: Mr. Joseph is a 64-year-old gentleman with a history of stage IV cancer, who presents to the ER for increasing shortness of breath. His shortness of breath started worsening 2 days prior to admission and continued to worsen. The day prior to admission, he received a unit of packed red blood cells for symptomatic anemia secondary to his metastatic cancer. The patient also had an episode of syncope on the day prior to admission. He was admitted to the hospital. He was found to have a large right-sided pleural effusion. Hemoglobin of 8.9, sodium of 133. BNP mildly elevated at 164. A thoracentesis was performed by Dr. Valenzuela at bedside, which significantly alleviated the patient's shortness of breath. Palliative Care came by and discussed palliative care options including hospice. The patient was amenable to palliative care at this time and was going to set that up outpatient. The patient was discharged home with intent for palliative care. DISPOSITION: Stable. DISCHARGE INSTRUCTIONS: Location: Home. Diet: Heart healthy. ACTIVITY: Ad andrea. FOLLOWUP: Followup with primary care physician after discharge. Job ID: [id number]
== END 2020-01-04 17:45 | disposition home health service (06) ==
LOC: ERS 10:54 → INTOOBSV 12:44 → ONC 12:44 → ERS 14:25 → IMCU/EMU 14:36
PROVIDERS: ADMIT Emergency Medicine; ATTEND Emergency Medicine
PROC: 0W993ZZ Drainage of Right Pleural Cavity, Percutaneous Approach (ICD-10-PCS; principal; 2020-01-04)
DX: J90 Pleural effusion, not elsewhere classified (principal); C32.9 Malignant neoplasm of larynx, unspecified; C79.51 Secondary malignant neoplasm of bone; C77.9 Secondary and unspecified malignant neoplasm of lymph node, unspecified; I95.1 Orthostatic hypotension; F41.9 Anxiety disorder, unspecified; I48.0 Paroxysmal atrial fibrillation; R53.81 Other malaise; D64.9 Anemia, unspecified; D69.6 Thrombocytopenia, unspecified; Z79.899 Other long term (current) drug therapy
CPT/HCPCS: 36415; 71045; 71275; 80048; 80053; 81003; 82150; 82550; 82945; 83605; 83615; 83735; 83880; 84145; 84157; 84443; 84478; 84484; 85025; 85060; 86850; 86900; 86901; 87070; 87116; 87205; 87206; 88112; 88305; 89051; 93005; 93010; 93306; 96361; 96372; 96374; 96375; 96376; G0378; J0171; J1642; J1650; J1940; J2001; J2270; J7512; Q9967